=== PATIENT | male | born 1945 | race Caucasian/White ===

== ENCOUNTER 2020-01-17 13:57 | Observation (INO) | payer OTHER, MEDICARE ==
[~2020-01-17] VITALS: Ht 182.9 cm; Wt 93.0 kg
[~2020-01-17 13:57] MED LIST: LACT10SY PO; OXYC1TAB11 PO; Percocet 5-3251 EACH PO; [UNRECOGNIZED DRUG - CODE]
--- NOTE | 2020-01-17 21:00 | NUR ---
ARRIVAL NOTE RECEIVED HAND OFF FROM Mica BARNARD RN USING SBAR. TRANPORTED TO ROOM 231 VIA WHEELCHAIR AT 2000HRS. TRANSFERED SELF TO CHAIR IN ROOM WITH STANDBY ASSIST, TOLERATED WELL. AAO X3, CHILDERS, FOLLOWS ALL COMMANDS. ORIENTED TO ROOM, CALL SYSTEM, AND POC, VOICES UNDERSTANDING. GUARDING NOTED AND C/O RIGHT SIDED UPPER TRUNK PAIN, RIGHT SHOULDER PAIN, AND RIGHT NECK PAIN THAT ALL INCREASE WITH DEEP INSPIRATION. NOTED TO BED SHALLOW BREATHING WITH PURSE LIPPED BREATHING AFTER DEEP INSPIRATIONS. BBS CLEAR BUT DIMINISHED IN BASES. MAINTAINING SATS AT 98 ON ROOM AIR. STATES THAT PAIN HAS IMPROVED SINCE MED GIVEN IN ER. CONTINENT OF BOWEL AND BLADDER, USES COMMODE AND URINAL. NEW 20G PIV PLACED TO LEFT FA X1 ATTEMPT, TOLERATED WELL. LR STARTED AT 20ML/HR FOR TKO ORDER. DENEIS FURTHER NEEDS OR WANTS AT THIS TIME. ADMISSION ASSESSMENT IN PROGRESS. SAFETY MEASURES IN PLACE. WILL CONTINUE TO MONITOR.
[2020-01-17] MEDS ORDERED: NAPR220 PO (21:02)
[2020-01-18 04:41] LABS: BASOPHILS ABSOLUTE AUTO 0.04 K/mm3 (0.00-0.23); BASOPHILS PERCENT AUTO 1 % (0-2); EOSINOPHILS ABSOLUTE AUTO 0.23 K/mm3 (0.00-0.68); EOSINOPHILS PERCENT AUTO 3 % (0-6); Hematocrit 40.8 % (37.0-53.0); Hemoglobin 13.6 g/dL (13.5-17.5); IMMATURE GRAN ABSOLUTE AUTO 0.04 K/mm3 (0.00-0.10); IMMATURE GRAN PERCENT AUTO 1 % (0-1); LYMPHOCYTES ABSOLUTE AUTO 1.19 K/mm3 (0.84-5.20); LYMPHOCYTES PERCENT AUTO 16 % (21-46); MONOCYTES ABSOLUTE AUTO 0.56 K/mm3 (0.16-1.47); MONOCYTES PERCENT AUTO 8 % (4-13); Mean Corpuscular HGB 29.7 pg (26.0-34.0); Mean Corpuscular HGB Conc 33.3 g/dL (31.5-36.5); Mean Corpuscular Volume 89 fL (80-100); Mean Platelet Volume 10.2 fL (9.1-12.4); NEUTROPHILS ABSOLUTE AUTO 5.36 K/mm3 (1.96-9.15); NEUTROPHILS PERCENT AUTO 72 % (41-73); Platelet Count 142 K/mm3 (150-400); RDW Coefficient Variation 14.5 % (11.7-14.2); RDW Standard Deviation 46.6 fL (35.1-46.3); Red Blood Cell Count 4.58 M/mm3 (4.30-5.90); White Blood Cell Count 7.42 K/mm3 (4.00-11.30)
[2020-01-18 05:05] LABS: Anion Gap 7 mmol/L (6-16); Blood Urea Nitrogen 27 mg/dL (8-24); Bun/Creatinine Ratio 27.6 (12.0-20.0); CO2, Blood 23 mmol/L (21-32); Calcium, Blood 9.2 mg/dL (8.5-10.1); Chloride, Blood 108 mmol/L (98-108); Creatinine, Blood 0.98 mg/dL (0.60-1.20); Glomerular Filtration Rate >60 (60-); Glucose, Blood 93 mg/dL (70-99); Potassium, Blood 4.4 mmol/L (3.5-5.5); Sodium, Blood 138 mmol/L (136-145)
--- NOTE | 2020-01-18 05:20 | NUR ---
SHIFT SUMMARY LYING IN SEMI FOWLERS WITH EYES CLOSED. HAS RESTED WELL SINCE ADMISSION. MEDICATED FOR RIGHT SIDED PAIN PER EMAR X1 THIS SHIFT. PT IS SELF CARE. DENIES PAIN, DISCOMFORT, FURTHER NEEDSAT THIS TIME. SAFETY MEASURES IN PLACE. WILL CONTINUE TO MONITOR AND GIVE HAND OFF TO ONCOMING SHIFT USING SBAR.
--- NOTE | 2020-01-18 06:00 | NUR ---
LOW ALARM ON HR CHANGED TO 40BPM DUE TO PT STATING THAT HIS HR IS NORMALLY LOW AND IS REPORTED TO DROP INTO THE 40'S ROUTINELY. Karin COATES, RT INFORMED OF THE CHANGE. SAFETY MEASURES IN PLACE. WILL CONTINUE TO MONITOR.
--- NOTE | 2020-01-18 06:15 | NUR ---
TAKEN TO RADIOLOGY VIA WHEELCHAIR. WILL CONTINUE TO MONITOR.
--- NOTE | 2020-01-18 06:30 | NUR ---
RETURN TO ROOM FROM [employer]. RECONNECTED TO O IVF AND BIOX, TOLERATED WELL. WILL CONTINUE TO MONITOR.
--- NOTE | 2020-01-18 11:31 | NUR ---
DR. COLLADO CAME IN A CONSULT FOR THIS PATIENT. DR. COLLADO HAS OXYGEN PLACED TO HELP INCREASE OXYYGENATION AND HEALING TO HIS LUNG. WILL CONTINUE TO MONITOR.
--- NOTE | 2020-01-18 17:03 | NUR ---
SHIFT SUMMARY: PATIENT HAS BEEN ALERT AND ORIENTED X4 THROUGHOUT SHIFT. THOUGH HE DID TAKE NAPS ON AND OFF BECAUSE HE REPORTED "NOT SLEEPING WELL" LAST NIGHT. HIS VITALS SIGNS ARE WNL. DR. COLLADO ORDERED FOR PATIENT TO BE ON NC WITH 2.5L OF O2 TO INCREASE THE HEALING PROCESS OF THE AVEOLI IN THE RIGHT LUNG. OTHERWISE, PATIENTS O2 STATS WERE IN THE >95% BEFORE THE NC. PATIENT DOES HAVE SOME SIDE/RIB PAIN WHEN TAKING DEEP BREATHS OR MOVING A CERTAIN WAY. PATIENT STATES "I DON'T NEED THE PAIN MEDICATIONS YET" WHEN OFFERED. HE HAS BEEN INDEPENDANT IN THE ROOM AND IS SALINE LOCKED. DR. COLLADO SAYS HE WILL BE A POSSIBLE DISCHARGE TOMORROW DEPENDING ON THE CHEST XRAY DUE AT 0500 IN THE [facility]. WILL CONTINUE TO MONITOR UNTIL NEXT ONCOMING NIGHTSHIFT NURSE COMES TO RECIEVE REPORT.
--- NOTE | 2020-01-19 04:19 | NUR ---
PT HAD UNEVENTFUL NIGHT. SATS >94% ON RA, PT USING 2L SUPPLEMENTAL O2, CONT OX IN PLACE. LUNGS COARSE IN BASES, PT HAS PROD COUGH, DENIED SOB. NO CREPITUS NOTED. PT AMB INDEP IN HALLS, FRIDA WELL. PT DECLINED NEED FOR PAIN MEDS. PLAN FOR REPEAT CXR THIS AM.
--- NOTE | 2020-01-19 10:20 | NUR ---
DISCHARGE NOTE: PATIENT HAS BEEN EDUCATED ON DISCHARGE INSTRUCTIONS. HE HAS NO FURTHER QUESTIONS AT THIS TIME. HE IS ALERT AND ORIENTED X4. HIS VITALS ARE WITHIN NORMAL LIMITS. HIS IV HAS BEEN TAKEN OUT AND WAS WNL. HE IS CURRENTLY GATHERING HIS ITEMS AND CHANGING HIS CLOTHES. HE HAS HIS PAIN MEDICATION AND XRAY PERSCRIPTION IN HIS DISCHARGE PACKET. HE WAS A PLEASANT/BLESSING PATIENT TO HAVE. HE WILL BE WALKING OUT AND DRIVING HOME SHORTLY.
== END 2020-01-19 10:32 | disposition home or self-care (01) ==
LOC: ER 13:57 → SURS 13:58 → ERHOLD 13:58 → SURS 19:58
PROVIDERS: ADMIT Surgery
DX: S27.0XXA Traumatic pneumothorax, initial encounter (principal); S22.31XA Fracture of one rib, right side, initial encounter for closed fracture; Z88.5 Allergy status to narcotic agent; Z88.0 Allergy status to penicillin; F17.210 Nicotine dependence, cigarettes, uncomplicated; W17.89XA Other fall from one level to another, initial encounter
CPT/HCPCS: 36415; 71046; 71101; 71250; 80048; 85025; 94762; 96374; 99285-25; A9270-GY; G0378; J1885; J7120

== ENCOUNTER 2020-01-26 22:43 | Emergency (ER) | payer OTHER, MEDICARE ==
[~2020-01-26] VITALS: Ht 182.9 cm; Wt 95.2 kg
[~2020-01-26 22:43] MED LIST changes: +NAPR220 PO
[2020-01-27 00:17] LABS: BASOPHILS ABSOLUTE AUTO 0.12 K/mm3 (0.00-0.23); BASOPHILS PERCENT AUTO 2 % (0-2); EOSINOPHILS ABSOLUTE AUTO 0.63 K/mm3 (0.00-0.68); EOSINOPHILS PERCENT AUTO 8 % (0-6); Hematocrit 43.3 % (37.0-53.0); Hemoglobin 14.5 g/dL (13.5-17.5); IMMATURE GRAN ABSOLUTE AUTO 0.07 K/mm3 (0.00-0.10); IMMATURE GRAN PERCENT AUTO 1 % (0-1); LYMPHOCYTES ABSOLUTE AUTO 1.94 K/mm3 (0.84-5.20); LYMPHOCYTES PERCENT AUTO 24 % (21-46); MONOCYTES ABSOLUTE AUTO 0.62 K/mm3 (0.16-1.47); MONOCYTES PERCENT AUTO 8 % (4-13); Mean Corpuscular HGB 29.4 pg (26.0-34.0); Mean Corpuscular HGB Conc 33.5 g/dL (31.5-36.5); Mean Corpuscular Volume 88 fL (80-100); Mean Platelet Volume 9.8 fL (9.1-12.4); NEUTROPHILS ABSOLUTE AUTO 4.65 K/mm3 (1.96-9.15); NEUTROPHILS PERCENT AUTO 58 % (41-73); Platelet Count 212 K/mm3 (150-400); RDW Coefficient Variation 14.1 % (11.7-14.2); RDW Standard Deviation 45.7 fL (35.1-46.3); Red Blood Cell Count 4.93 M/mm3 (4.30-5.90); White Blood Cell Count 8.03 K/mm3 (4.00-11.30)
== END 2020-01-27 00:58 | disposition home or self-care (01) ==
LOC: ER 22:43
PROVIDERS: Physician Assistant
DX: S00.83XA Contusion of other part of head, initial encounter (principal); S50.811A Abrasion of right forearm, initial encounter; J93.9 Pneumothorax, unspecified; Z88.5 Allergy status to narcotic agent; Z88.0 Allergy status to penicillin; Z23 Encounter for immunization; W18.09XA Striking against other object with subsequent fall, initial encounter
CPT/HCPCS: 36415; 70450; 71046; 72125; 85025; 90471; 90714; 99284-25

== ENCOUNTER 2022-06-18 15:13 | Observation (INO) | payer OTHER ==
[~2022-06-18] VITALS: Ht 182.9 cm; Wt 78.8 kg
[2022-06-18 16:06] LABS: BASOPHILS ABSOLUTE AUTO 0.05 K/mm3 (0.00-0.23); BASOPHILS PERCENT AUTO 1 % (0-2); EOSINOPHILS ABSOLUTE AUTO 0.04 K/mm3 (0.00-0.68); EOSINOPHILS PERCENT AUTO 1 % (0-6); Hemoglobin 10.7 g/dL (13.5-17.5); IMMATURE GRAN ABSOLUTE AUTO 0.04 K/mm3 (0.00-0.10); IMMATURE GRAN PERCENT AUTO 1 % (0-1); LYMPHOCYTES ABSOLUTE AUTO 1.11 K/mm3 (0.84-5.20); LYMPHOCYTES PERCENT AUTO 17 % (21-46); MONOCYTES ABSOLUTE AUTO 0.43 K/mm3 (0.16-1.47); MONOCYTES PERCENT AUTO 7 % (4-13); Mean Corpuscular HGB Conc 30.6 g/dL (31.5-36.5); Mean Corpuscular Volume 65 fL (80-100); Mean Platelet Volume 9.4 fL (9.1-12.4); NEUTROPHILS PERCENT AUTO 75 % (41-73); Platelet Count 394 K/mm3 (150-400); RDW Coefficient Variation 20.7 % (11.7-14.2); Red Blood Cell Count 5.36 M/mm3 (4.30-5.90); White Blood Cell Count 6.57 K/mm3 (4.00-11.30)
[2022-06-18 16:25] LABS: Albumin, Blood 2.6 g/dL (3.4-5.0); Albumin/Globulin Ratio 0.6 (0.8-1.8); Bilirubin, Total 0.5 mg/dL (0.1-1.0); Bun/Creatinine Ratio 35.6 (12.0-20.0); Calcium, Blood 9.4 mg/dL (8.5-10.1); Creatinine, Blood 0.7 mg/dL (0.60-1.20); Globulin, Blood 4.2 g/dL (2.2-4.0); Potassium, Blood 4.3 mmol/L (3.5-5.5); Total Protein, Blood 6.8 g/dL (6.4-8.2)
[2022-06-18] MEDS ORDERED: ALBU90OI INH (19:04)
[2022-06-18] MEDS ORDERED: MORPHINE SULFAT50 MG PO (19:06)
[2022-06-18 19:34] LABS: International Normalized Ratio 0.98; Prothrombin Time Results 10.3 Sec (9.7-11.5)
[2022-06-18] MEDS ORDERED: ASMANEX HFA13 G6 PO (21:41)
--- NOTE | 2022-06-19 03:37 | NUR ---
END OF SHIFT: PATIENT IS ALERT AND ORIENTED, TALKATIVE, PLEASANT, AND COOPERATIVE WITH CARE. PULM: PATIENT IS ON RA RR AT 20 AND CAN AT TIMES LOOK SOB OF BREATH DENIES NEED FOR PRN ALBUTEROL. SPO2 IS 92% OR >. CARDIAC: PATIENT DENIES CHEST PAIN OR PRESSURE. HEPARIN DRIP FOR PE AND DVT. DR. PHILLIP CONSULT BY SENIOR DESIGN ENGINEER. PATIENT WITH DVT. IMPROVING Sx WITH HEPARIN. GI/: YELLOW URINE, URINAL AT BEDSIDE. PATIENT ENDORSES NO BM X 4 DAY NOW. TOLD THIS RN THAT HE DOES NOT WANT MEDICATIONS AT THIS TIME. SKIN. FRAGILE PALE SKIN ASMANEX DOSING NEEDED FOR PATIENT WILL INFORM DAY RN. WILL CONTINUE TO MONITOR UNTIL SHIFT CHANGE
[2022-06-19 03:44] LABS: BASOPHILS ABSOLUTE AUTO 0.05 K/mm3 (0.00-0.23); BASOPHILS PERCENT AUTO 1 % (0-2); EOSINOPHILS ABSOLUTE AUTO 0.07 K/mm3 (0.00-0.68); EOSINOPHILS PERCENT AUTO 1 % (0-6); Hematocrit 32.2 % (37.0-53.0); Hemoglobin 9.8 g/dL (13.5-17.5); IMMATURE GRAN ABSOLUTE AUTO 0.02 K/mm3 (0.00-0.10); IMMATURE GRAN PERCENT AUTO 0 % (0-1); LYMPHOCYTES ABSOLUTE AUTO 0.86 K/mm3 (0.84-5.20); LYMPHOCYTES PERCENT AUTO 17 % (21-46); MONOCYTES ABSOLUTE AUTO 0.37 K/mm3 (0.16-1.47); MONOCYTES PERCENT AUTO 8 % (4-13); Mean Corpuscular HGB 19.8 pg (26.0-34.0); Mean Corpuscular HGB Conc 30.4 g/dL (31.5-36.5); Mean Corpuscular Volume 65 fL (80-100); Mean Platelet Volume 9.1 fL (9.1-12.4); NEUTROPHILS ABSOLUTE AUTO 3.57 K/mm3 (1.96-9.15); NEUTROPHILS PERCENT AUTO 72 % (41-73); Platelet Count 346 K/mm3 (150-400); RDW Coefficient Variation 20.3 % (11.7-14.2); Red Blood Cell Count 4.96 M/mm3 (4.30-5.90); White Blood Cell Count 4.94 K/mm3 (4.00-11.30)
[2022-06-19 05:37] LABS: Albumin, Blood 2.4 g/dL (3.4-5.0); Albumin/Globulin Ratio 0.6 (0.8-1.8); Bilirubin, Total 0.4 mg/dL (0.1-1.0); Bun/Creatinine Ratio 34.8 (12.0-20.0); Calcium, Blood 8.8 mg/dL (8.5-10.1); Creatinine, Blood 0.75 mg/dL (0.60-1.20); Globulin, Blood 3.9 g/dL (2.2-4.0); Total Protein, Blood 6.3 g/dL (6.4-8.2)
--- NOTE | 2022-06-19 13:02 | NUR ---
Pt resting in bed upon arrival. Pt denies pain at this time, but mild discomfort noted when Pt repositions himself. Pt reports being a who served in the [employer]. This RN thanked him for his service. Pt reports being and has 3 children, one lives out of state and 2 living localy. He reports family is supportive. Discussed considering completing advanced directive with Pt agreeable to hear more. Educated on each scenarion and options for life support and tube feedings. Educated on each section to complete and the importance of appointing a healthcare advertising representative. Discussed code status wishes. Educated on life sustaining measures including risk factors and implications of CPR/Intubation. Pt reports wishes are to remain a full code. Pt reports plan to discuss AD with when she comes to visit. Pt expresses appreciation and reports no other concerns at this time. Spoke with Pt's Primary RN La. Pt schedule for procedure with Dr Butts this afternoon. Palliative Care will remain available
--- NOTE | 2022-06-19 17:55 | NUR ---
SHIFT NOTE PT IS CURRENTLY [facility]. PT HAS BEEN RESTING WELL IN BED T/O THE DAY. DENIES CP, SOB. AMBULATES WELL WITH STEADY GAIT. SWELLING AND EDEMA NOTED TO ZINA. VSS. BYNUM. A/O X4. PT REPORTS ABD PAIN THAT HAS BEEN TREATED ROUGHLY EVERY 2 HOURS WITH 50MCG OF FENTANYL IVP FOR PAIN MANAGEMENT. PT SIGNED ADVANCED DIRECTIVE THIS AFTERNOON. HE EXPRESSED A GOOD DEAL OF ANXIETY ABOUT HIS PROCEDURE WHICH HE WAS EDUCATED. OTHWERWISE NO FURTHER CHANGES THIS SHIFT TO DISCUSS
--- NOTE | 2022-06-19 20:20 | NUR ---
UPDATE PT BACK FROM HC. SECURMENT DEVICE TO LUE. SITE WNL. PULSES PALPABLE. VSS. ORDERS TO CONT HEPARIN GTT. PHARMACY NOTIFIED. HEPARIN GTT AT PREVIOUS RATE. AT BEDSIDE. WILL CONT TO MONITOR.
[2022-06-20 01:37] LABS: BASOPHILS ABSOLUTE AUTO 0.05 K/mm3 (0.00-0.23); BASOPHILS PERCENT AUTO 1 % (0-2); EOSINOPHILS ABSOLUTE AUTO 0.05 K/mm3 (0.00-0.68); EOSINOPHILS PERCENT AUTO 1 % (0-6); Hematocrit 32.8 % (37.0-53.0); Hemoglobin 10.3 g/dL (13.5-17.5); IMMATURE GRAN ABSOLUTE AUTO 0.03 K/mm3 (0.00-0.10); IMMATURE GRAN PERCENT AUTO 1 % (0-1); LYMPHOCYTES ABSOLUTE AUTO 0.72 K/mm3 (0.84-5.20); LYMPHOCYTES PERCENT AUTO 14 % (21-46); MONOCYTES PERCENT AUTO 6 % (4-13); Mean Corpuscular HGB 20.4 pg (26.0-34.0); Mean Corpuscular HGB Conc 31.4 g/dL (31.5-36.5); Mean Corpuscular Volume 65 fL (80-100); NEUTROPHILS ABSOLUTE AUTO 4.09 K/mm3 (1.96-9.15); NEUTROPHILS PERCENT AUTO 78 % (41-73); Platelet Count 323 K/mm3 (150-400); RDW Coefficient Variation 20.5 % (11.7-14.2); RDW Standard Deviation 45.3 fL (35.1-46.3); Red Blood Cell Count 5.06 M/mm3 (4.30-5.90); White Blood Cell Count 5.24 K/mm3 (4.00-11.30)
[2022-06-20 02:49] LABS: Bun/Creatinine Ratio 32.4 (12.0-20.0); Calcium, Blood 8.7 mg/dL (8.5-10.1); Creatinine, Blood 0.65 mg/dL (0.60-1.20); Potassium, Blood 3.8 mmol/L (3.5-5.5)
--- NOTE | 2022-06-20 05:54 | NUR ---
SHIFT SUMMARY PT ALERT AND ORIENTED X 4. ARRIVED TO UNIT FROM AT 1905. VSS. L RADIAL PULSE STRONG. PT REPORTS NO PAIN AT SITE. DRESSING AND FLOWSTASIS WNL, NO DRAINAGE OR BLEEDING FROM SITE. PT REPORTS NO NUMBNESS OR TINGLING IN AFFECTED ARM. HEPARIN GTT, SEE EMAR. PT SBA TO COMMODE NEEDED. OXYGEN SATURATION MAINTAINED ABOVE 92% ON RA. PT SOB WITH EXERTION. HR STABLE. BP STABLE. NO CP OR PAIN REPORTED. CALL LIGHT WITHIN REACH. WILL CONT TO MONITOR UNTIL REPORT GIVEN TO DAYSHIFT RN.
--- NOTE | 2022-06-20 07:20 | NUR ---
INITIAL ASSESSMENT: Patient is lying in bed with eyes closed, he wakes easily with verbal stimuli. He is alert and oriented. 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 He denies N/T. HRR, SR in the 70s. 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 BT+, abd slightly tender. RUE is swollen 3+ pitting edema, pulse is thready. He has a flowstasis securement device on the underneath side of his left upper arm, there is a gauze dressing secured with coban-CDI. PPP, pt has 1+ edema to BLE. VSS. Patient does not want his stool softner this AM because he already had a bowel movement. He denies other needs at this time, call light in reach.
[2022-06-20] MEDS ORDERED: XARELTO15 MG PO (10:01)
[2022-06-20] MEDS ORDERED: MS Contin15 MG PO (10:02)
[2022-06-20] MEDS ORDERED: Norco 7.5-3251 EACH PO (10:03)
[2022-06-20] MEDS ORDERED: HYDHCL25 PO (10:03)
[2022-06-20] MEDS ORDERED: FAMO20 PO (10:04)
--- NOTE | 2022-06-20 10:16 | NUR ---
Update: Home O2 eval done, patient does not qualify for oxygen at this point. I have attempted to get a hold of his for a DC, plan. I left her a message-no return call yet.
--- NOTE | 2022-06-20 12:50 | NUR ---
Discharge: Patients daughter showed up to take him home. PO Xarelto was given and Hep gtt was stopped. Patient was given home dose of Morphine prior to DC. The patient and the daughter verbalize understanding of discharge instructions. The patient went home with daughter via WC.
== END 2022-06-20 12:50 | disposition home or self-care (01) ==
LOC: ER 15:13 → PCU 19:18 → ER 19:18 → PCU 20:43
PROVIDERS: Internal Medicine; Physician Assistant; ADMIT Internal Medicine
DX: I82.C12 Acute embolism and thrombosis of left internal jugular vein (principal); I82.B12 Acute embolism and thrombosis of left subclavian vein; C45.9 Mesothelioma, unspecified; D50.9 Iron deficiency anemia, unspecified; R10.9 Unspecified abdominal pain; G89.29 Other chronic pain; Z88.0 Allergy status to penicillin; Z88.5 Allergy status to narcotic agent
CPT/HCPCS: 36415; 76937; 80048; 80053; 83880; 85025; 85520; 85610; 90686; 94640; 94664; 94760; 94761; 96374; 96375; 96376; 99152; 99153; 99284-25; A9270; C1725; C1757; C1769; C1887; C1894; C9113; G0008; G0378; J1644; J2250; J3010; J7030; Q9967

== ENCOUNTER 2022-07-28 18:07 | Emergency (ER) | payer OTHER ==
[~2022-07-28] VITALS: Ht 182.9 cm; Wt 77.1 kg
[~2022-07-28 18:07] MED LIST changes: +ALBU90OI INH; +ASMANEX HFA13 G6 PO; +FAMO20 PO; +HYDHCL25 PO; +MORPHINE SULFAT50 MG PO; +MS Contin15 MG PO; +Norco 7.5-3251 EACH PO; +XARELTO15 MG PO
[2022-07-28 18:51] LABS: Hematocrit 39.7 % (37.0-53.0); Hemoglobin 12.2 g/dL (13.5-17.5); Mean Corpuscular HGB 20.4 pg (26.0-34.0); Mean Corpuscular HGB Conc 30.7 g/dL (31.5-36.5); Mean Corpuscular Volume 67 fL (80-100); Mean Platelet Volume 9.2 fL (9.1-12.4); Platelet Count 271 K/mm3 (150-400); RDW Coefficient Variation 20.5 % (11.7-14.2); RDW Standard Deviation 46.4 fL (35.1-46.3); Red Blood Cell Count 5.97 M/mm3 (4.30-5.90)
[2022-07-28 19:05] LABS: Albumin, Blood 2.4 g/dL (3.4-5.0); Albumin/Globulin Ratio 0.6 (0.8-1.8); Bilirubin, Total 0.7 mg/dL (0.1-1.0); Bun/Creatinine Ratio 50.1 (12.0-20.0); Calcium, Blood 9.2 mg/dL (8.5-10.1); Creatinine, Blood 0.92 mg/dL (0.60-1.20); Potassium, Blood 4.3 mmol/L (3.5-5.5); Total Protein, Blood 6.4 g/dL (6.4-8.2)
[2022-07-28 19:38] LABS: White Blood Cell Count 0.27 K/mm3 (4.00-11.30)
[2022-07-28 19:39] LABS: EOSINOPHILS ABSOLUTE MAN 0.01 K/mm3 (0.00-0.68)
[2022-07-28 20:14] LABS: BAND PERCENT MAN 18 % (0-8); BASOPHILS PERCENT MAN 2 % (0-2); EOSINOPHILS PERCENT MAN 6 % (0-6); LYMPHOCYTES ABSOLUTE MAN 0.12 K/mm3 (0.84-5.20); LYMPHOCYTES PERCENT MAN 48 % (21-46); MONOCYTES ABSOLUTE MAN 0.01 K/mm3 (0.16-1.47); MONOCYTES PERCENT MAN 4 % (4-13); SEG NEUTROPHILS PERCENT MAN 22 % (41-73); TOTAL CELLS COUNTED 50
[2022-07-28 20:19] LABS: METAMYELOCYTE PERCENT MAN 0 % (0-0)
[2022-07-30] MEDS ORDERED: CLIN150 PO (11:57)
== END 2022-07-28 22:38 | disposition home or self-care (01) ==
LOC: ER 18:07
PROVIDERS: Emergency Medicine
DX: S09.90XA Unspecified injury of head, initial encounter (principal); F17.210 Nicotine dependence, cigarettes, uncomplicated; W18.09XA Striking against other object with subsequent fall, initial encounter; Z88.0 Allergy status to penicillin; Z88.5 Allergy status to narcotic agent; Z79.02 Long term (current) use of antithrombotics/antiplatelets; Z79.899 Other long term (current) drug therapy
CPT/HCPCS: 70450; 73030; 74177; 80053; 83690; 85025; 96361; 96374-59; 96375; 99285-25; J1170; J2270; J2405; J7030; Q9967